=== PATIENT | female | born 1995 | race Caucasian/White ===

== ENCOUNTER 2020-10-23 00:50 | Emergency (ER) | payer BC, OTHER ==
--- NOTE | 2020-10-23 02:04 | ED Physician Documentation ---
PD HPI HEADACHE - Stated complaint Stated Complaint: HEAD/NECK PX, BODY ACHE, BODY ACHES - Chief complaint Chief Complaint: General - History obtained from History obtained from: Patient - History of Present Illness Timing - onset: Enter time (16:00) Timing - onset during: Rest Timing - details: Gradual onset Pain level now: 8 Associated symptoms: Nausea, Vomiting, Weakness, Numbness. No: Fever, Stiff neck, Vision changes Improved by: Dark room, Quiet Worsened by: Light, Noise Contributing factors: No: Anticoagulated, Possible carbon monoxide, Hypertension, Recent illness, Trauma Similar symptoms before: Diagnosis (migraine headache) Recently seen: Not recently seen - Additional information Additional information: c/o bifrontal headache since 4 PM today, onset while at home at rest. It is associated with nausea and vomiting, generalized weakness, and paresthesias of BUE/BLE (paresthesias are atypical for her previous migraine headaches) Review of Systems Constitutional: denies: Fever, Chills, Myalgias Eyes: reports: Photophobia. denies: Loss of vision, Decreased vision Cardiac: reports: Reviewed and negative Respiratory: reports: Reviewed and negative GI: reports: Nausea, Vomiting. denies: Abdominal Pain : denies: Now EGA Musculoskeletal: denies: Neck pain Neurologic: reports: Generalized weakness, Numbness, Headache PD PAST MEDICAL HISTORY - Past Medical History Past Medical History: Yes Neuro: Migraines - Present Medications Home Medications: Ambulatory Orders Medication Instructions Recorded Confirmed HYDROcod/ACETAM 5/325 [Greenback 5/325] 1 - 2 tablet PO Q6H PRN #14 tablet 10/23/20 Promethazine Supp [Phenergan Supp] 25 mg AK Q6HR PRN #10 supp 10/23/20 - Allergies Allergies/Adverse Reactions: Allergies Allergy/AdvReac Type Severity Reaction Status Date / Time iron Allergy Anaphylaxis Verified 10/23/20 02:33 Tetracyclines Allergy Hives Verified 10/23/20 02:33 - Living Situation Living Arrangement: reports: At home - Social History Does the pt smoke?: No PD ED PE NORMAL - Vitals Vital signs reviewed: Yes - General General: Alert and oriented X 3, No acute distress, Well developed/nourished - HEENT HEENT: PERRL, EOMI - Neck Neck: Supple, no meningeal sign - Cardiac Cardiac: RRR, No murmur - Respiratory Respiratory: No respiratory distress, Clear bilaterally - Abdomen Abdomen: Soft, Non tender - Neuro Neuro: Alert and oriented X 3, 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, No motor deficit, No sensory deficit, Normal speech Eye Opening: Spontaneous Motor: Obeys Commands Verbal: Oriented GCS Score: 15 - Psych Psych: Normal mood, Normal affect Results - Vitals Vitals: Oxygen O2 Source Room air - Labs Labs: Laboratory Tests 10/23/20 10/23/20 02:48 02:48 WBC 8.5 RBC 4.42 Hgb 13.5 Hct 39.8 MCV 90.0 MCH 30.5 MCHC 33.9 RDW 12.7 Plt Count 373 MPV 9.4 Neut # (Auto) 6.6 Lymph # (Auto) 1.4 L [place] # (Auto) 0.4 Eos # (Auto) 0.0 Baso # (Auto) 0.1 Absolute Nucleated RBC 0.00 Nucleated RBC % 0.0 Sodium 136 Potassium 3.7 Chloride 102 Carbon Dioxide 24 Anion Gap 10.0 BUN 7 Creatinine 0.6 Estimated GFR (MDRD) 121 Glucose 114 H Calcium 9.0 - Rads (name of study) CTH Radiology: Prelim report reviewed, See rad report PD MEDICAL DECISION MAKING - ED course Complexity details: reviewed results, re-evaluated patient, considered differential, d/w patient ED course: presents with headache that is in some ways typical for her previous migraine headaches albeit more severe and persistent, but also with BUE/BLE paresthesias which is not typical for her migraine MANUEL. Because of these atypical features, CTH performed and this has no acute/emergent/concerning findings. She reports adequate relief with IV NS, Phenergan, and Dilaudid. Departure - Departure Disposition: 01 Home, Self Care Clinical Impression: Headache Qualifiers: Headache type: unspecified Headache chronicity pattern: acute headache Intractability: not intractable Qualified Code(s): R51.9 - Headache, unspecified Condition: Good Instructions: ED Cephalgia Unspecified Prescriptions: Promethazine Supp [Phenergan Supp] 25 mg AK Q6HR PRN #10 supp PRN Reason: Nausea / Vomiting HYDROcod/ACETAM 5/325 [Greenback 5/325] 1 - 2 tablet PO Q6H PRN #14 tablet PRN Reason: Pain Discharge Date/Time: 10/23/20 06:30
[2020-10-23] MEDS ORDERED: HYDROmorphone 1 MG/ML CARPUJECT IVP STA (02:25)
[2020-10-23] MEDS ORDERED: PROMETHAZINE INJ 25 MG in SODIUM CHLORIDE 0.9% 50 ML IV STA (02:25)
[2020-10-23] MEDS ORDERED: SODIUM CHLORIDE 0.9% 1,000 ML IV STA (02:25)
[2020-10-23] MEDS ORDERED: PROMETHAZINE 25 MG/1 ML VIAL ONE (02:32)
[2020-10-23 02:58] LABS: BASOPHILS # (AUTO) 0.1 10^3/uL (0.0-0.1); BASOPHILS % (AUTO) 0.7 %; EOSINOPHILS % (AUTO) 0.5 %; HCT - HEMATOCRIT 39.8 % (37.0-47.0); HGB - HEMOGLOBIN 13.5 g/dL (12.0-16.0); LYMPHOCYTES # (AUTO) 1.4 10^3/uL (1.5-3.5); LYMPHOCYTES % (AUTO) 16.6 %; MEAN CORPUSCULAR HEMOGLOBIN 30.5 pg (27.0-31.0); MEAN CORPUSCULAR HGB CONC 33.9 g/dL (32.0-36.0); MEAN PLATELET VOLUME 9.4 fL (7.9-10.8); MONOCYTES # (AUTO) 0.4 10^3/uL (0.0-1.0); MONOCYTES % (AUTO) 4.2 %; NEUTROPHILS # (AUTO) 6.6 10^3/uL (1.5-6.6); NEUTROPHILS % (AUTO) 77.8 %; PLT - PLATELET COUNT 373 10^3/uL (130-450); RED BLOOD COUNT 4.42 10^6/uL (4.20-5.40); RED CELL DISTRIBUTION WIDTH 12.7 % (12.0-15.0); WHITE BLOOD COUNT 8.5 x10^3/uL (4.8-10.8)
[2020-10-23 03:06] LABS: CREATININE 0.6 mg/dL (0.4-1.0); POTASSIUM 3.7 mmol/L (3.5-5.0)
[2020-10-23] MEDS ORDERED: HYDROcod/ACET 5/325 Prepack 4 PO STA (05:36)
[2020-10-23 06:29] VITALS: BP 122/80
--- NOTE | 2020-10-23 08:00 | CT Report ---
PROCEDURE: HEAD WO INDICATIONS: MANUEL TECHNIQUE: Noncontrast 4.5 mm thick angled axial sections acquired from the foramen magnum to the vertex. For r adiation dose reduction, the following was used: automated exposure control, adjustment of mA and/or kV according to patient size. COMPARISON: None. FINDINGS: Image quality: Excellent. CSF spaces: Basal cisterns are patent. No extra-axial fluid collections. Ventricles are normal in size and shape. Brain: No midline shift. No intracranial masses or hemorrhage. Jay-white matter interface is norm al. Skull and face: Calvarium and visualized facial bones are intact, without suspicious lesions. Sinuses: Visualized sinuses and mastoids are clear. IMPRESSION: No acute intracranial abnormality. Reviewed by: Jonathon Beatty MD on 10/23/2020 7:59 AM PDT Approved by: Jonathon Beatty MD on 10/23/2020 7:59 AM PDT Station ID: [id number]
== END 2020-10-23 06:30 | disposition home or self-care (01) ==
LOC: ED 00:50
DX: R51.9 Headache, unspecified (principal); R20.2 Paresthesia of skin
CPT/HCPCS: 36415; 70450; 80048; 85025; 96365; 96375; 99284; J1170; J7040